=== PATIENT | female | born 1970 | race American Indian/Alaskan Native ===

== ENCOUNTER 2018-07-06 07:00 | Day surgery (SDC) | payer BC ==
[2018-07-06 07:13] VITALS: BMI 46.0
[2018-07-06 07:41] LABS: BASO # 0.1 K/uL (0.0-0.2); BASO % 0.7 % (0.0-2.0); EOS # 0.2 K/uL (0.0-0.7); EOS % 2.3 % (0.0-4.0); HEMOGLOBIN 13.8 g/dL (11.0-16.0); LYMPH # 2.8 K/uL (1.0-4.3); LYMPH % 33.5 % (20.0-40.0); MEAN CORPUSCULAR HGB CONC 34.4 g/dL (33.0-37.0); MEAN PLATELET VOLUME 8.5 fL (7.2-11.7); MONO # 0.7 K/uL (0.0-0.8); MONO % 8.8 % (0.0-10.0); NEUT # 4.5 K/uL (1.8-7.0); NEUT % 54.7 % (50.0-75.0); RBC 4.3 Mil/uL (3.80-5.20); RED CELL DISTRIBUTION WIDTH 13.9 % (11.5-14.5); WHITE BLOOD COUNT 8.3 K/uL (4.8-10.8)
[2018-07-06 07:53] LABS: BLOOD UREA NITROGEN 15 mg/dL (7-17); GFR NON-AFRICAN AMERICAN > 60
[2018-07-06] MEDS ORDERED: Midazolam 2 MG/2 ML VIAL ONE (08:58)
[2018-07-06] MEDS ORDERED: Propofol 10 mg/ml Inj (20 ML) ONE (08:58)
[2018-07-06] MEDS ORDERED: Clindamycin 600mg/50ml NS 600 MG/50 ML BAG IVPB ONE (08:59)
[2018-07-06] MEDS ORDERED: Sodium Chloride 0.9% 20 ML IV ONE (09:42)
[2018-07-06] MEDS ORDERED: Bupivacaine HCl 0.5% PF (30 ml) Inj ONE (11:04)
[2018-07-06] MEDS ORDERED: Oxycodone/Acetaminophen 5/325 mg Tab PO PRN ×2 (11:37)
--- NOTE | 2018-07-06 11:39 | PCM.SURG1 ---
Surgeon's Initial Post Op Note - Surgeon's Notes Surgeon: Dr. Avilez Color Finisher: Dr. Vicki Segal Type of Anesthesia: General Mask, Local Anesthesia Administered By: Nettie Valencia Pre-Operative Diagnosis: 1. left ankle synovitis/ impingement. 2. left ankle peroneal tenosynovitis. 3. bilateral hallucal ingrown toenails medial borders Operative Findings: see dictation. 4-0 monocryl. tenex- 3 minutes, 12 seconds. PRP- 3 CC. amniovo- 1CC Post-Operative Diagnosis: same Operation Performed: left ankle arthroscopy with debridement. left ankle tenex debridement peroneal tendons with PRP/ amniovo injection. bilateral hallucal medial border nail avulsions Specimen/Specimens Removed: soft tissue Estimated Blood Loss: EBL {In ML}: 20 Blood Products Given: N/A Drains Used: No Drains Post-Op Condition: Good Date of Surgery/Procedure: 07/06/18 Time of Surgery/Procedure: 11:39
[2018-07-06] MEDS ORDERED: HYDROmorphone 0.5 mg/0.5 ml ISec IVP PRN (11:47)
[2018-07-06] MEDS ORDERED: HYDROmorphone 0.5 mg/0.5 ml ISec ONE (11:58)
[2018-07-06] MEDS ORDERED: Lactated Ringer's 1,000 ML IV SCH (12:00)
[2018-07-06] MEDS ORDERED: Bupivacaine 0.25% 20 ML INJ IJ ONE (13:12)
[2018-07-06] MEDS ORDERED: Lidocaine Hydrochloride 5 ML INJ ONE (13:12)
--- NOTE | 2018-07-06 14:43 | PCM.ANESB2 ---
Popliteal Nerve Block - Popliteal Nerve Block Date of Procedure: 07/06/18 Anesthesiologist: Michaelle Pre-Procedure Diagnosis: Left ATF tear Post-Procedure Diagnosis: Left ATF tear Procedure Performed: Popliteal Nerve Block Left - Procedure Popliteal Nerve Block: After identification, the lateral portion of the thigh was prepped with Betadine solution three times and Lidocaine 1% was injected subcutaneously for topical anesthesia. At this point, a # 21 gauge Stimuplex insulated 4 inch needle was inserted into pre-marked area and advanced in a perpendicular direction. The needle was inserted above the ultrasound transducer in-plane towards the sciatic nerve in a [id number] direction. Needle advancement was performed carefully under direct ultrasound visualization. After repeated negative aspiration, _20_cc of __0.25_ % _bupivicaine__ was injected. Under ultrasound guidance the local anesthetics were observed surrounding sciatic nerve . The needle was removed intact and sterile dressing was applied. The patient tolerated the popliteal nerve block well with stable vital signs.
[2018-07-06] MEDS ORDERED: Lactated Ringer's 1,000 ML IV ONE (15:45)
[2018-07-06 16:05] VITALS: RESP 18
[2018-07-06 16:57] VITALS: BP 118/65; PULSE 82; TEMP 97.7; O2SAT 99
--- NOTE | 2018-07-07 06:24 | OP ---
PROCEDURE DATE: 07/06/2018 SURGEON: Ashely Avilez DPM. RAILCAR SWITCHMAN: Valerie Couch, PGY3; Steve Rodriguez, PGY2; Dr. Cohen, PGY1. PRIVATE TUTORS [employer] TEACHERS: Yo Braswell DO ANESTHESIA: General. PREOPERATIVE DIAGNOSES: 1. Left ankle synovitis/impingement. 2. Left ankle peroneal tendonitis/tenosynovitis. 3. Bilateral hallucal ingrown toenail, medial border. POSTOPERATIVE DIAGNOSES: 1. Left ankle synovitis/impingement. 2. Left ankle peroneal tendonitis/tenosynovitis. 3. Bilateral hallucal ingrown toenail, medial border. PROCEDURES PERFORMED: 1. Left ankle arthroscopy with debridement. 2. Left ankle percutaneous tenotomy of peroneal tendons under ultrasound guidance. 3. Left ankle platelet rich plasma and amniotic graft injection. 4. Left hallux medial border partial nail avulsion. 5. Right hallux medial border partial nail avulsion. INDICATIONS: The patient is a 48-year-old female with the above-mentioned diagnoses. The patient has exhausted multiple forms of conservative treatment at this time and now requires surgical intervention. The patient signed the consent after careful explanation of risks, benefits, complications, and alternatives for surgical procedure. No guarantees were given nor implied. DESCRIPTION OF PROCEDURE: The patient was brought into the operating room and placed on the operating room table in a supine position. A well-padded pneumatic thigh tourniquet was applied to the patient's left thigh. A time-out was performed for identification of the correct patient and procedure. Once general anesthesia was achieved, the patient's left and right legs were then prepped and draped in normal sterile manner. A thigh tourniquet was inflated to 350 mmHg and the procedure began. PROCEDURE #1: Left ankle arthroscopy with debridement: Attention was directed to the dorsal aspect of the patient's left ankle, where the ankle was infiltrated with approximately 10 mL of normal sterile saline. Next, utilizing a surgical marking pen, anatomical landmarks were marked as well as the tibialis anterior tendon and the medial and lateral gutters were identified. Next, utilizing a #15 blade, a medial portal was created. Utilizing hemostat at the level of the ankle joint, the ankle joint was then entered. Next, a 2.7 scope was inserted into the medial portal. There was an abundance of hypertrophic synovium as well as fibrous band within the ankle joint. Next, the lateral portal was created utilizing the #15 blade and a hemostat was then used down to the level of the ankle joint. Next, a trocar was placed into the lateral portal and triangulated along with the 2.7 scope. Next, a 4.0 Aggressive Shaver and a soft tissue ablater were inserted into the lateral ankle portal and debridement of the hypertrophic synovium and fibers then began. The ankle joint was then inspected for any osteochondral defect. No osteochondral defect was noted at this time. The 2.7 scope and a 3.5 aggressive shaver as well as the ablater were removed from each portal. The ankle joint was then flushed with copious amounts of normal sterile saline. The skin was reapproximated and coapted utilizing 4-0 nylon in simple suture technique. PROCEDURE #2: Left foot percutaneous debridement of peroneal tendons under ultrasound guidance: Attention was then directed to the left lateral ankle and foot. A sterile sleeve was placed over the ultrasound transducer and a diagnostic ultrasound was performed. Attention was then directed to the lateral foot and ankle. The anatomy was identified of the peroneal tendons and the diseased second area was seen inferior to the lateral malleolus extending to the base of the fifth metatarsal. Using a #15 blade, a stab incision was created over the lateral aspect of the ankle, inferior to the malleoli. The Tenex handpiece was introduced and much of the tip was located into the hypoechoic lesion, the foot pedal was depressed and the area was derided and tissue was excised. A total of 3 minutes and 12 seconds of ultrasonic energy was delivered. The skin was then re-approximated with 4-0 nylon. PROCEDURE #3: Injection of platelet-rich plasma and __amniovo___ graft into the lateral left ankle: A 3 mL of the patient's own blood was collected. The blood was placed in a centrifuge on the back table. The centrifuge was then turned on, and the blood was spun. Utilizing a needle and syringe, approximately 3 mL of the platelet-rich plasma was collected in a sterile manner. Using an 18 gauge needle, the 3 mL of PRP was injected to the left lateral ankle. Next, 2 mL of _amniovo____ graft was then injected into the lateral foot along the peroneal tendon sheath. The incision site was then dressed with Betadine-soaked gauze, Ada, and Brent. PROCEDURE #4: Left foot hallucal nail avulsion, medial border: Attention was directed to the left foot hallux medial border and with the use of an freer elevator, the border was undermined and then the nail was freed from the nail plate. Utilizing an Turkmen anvil and a hemostat, the medial border was cut and removed and passed from the surgical field. The hallux was then dressed with Betadine-soaked gauze, 4x4 gauze, Ada, and Brent. PROCEDURE #5: Right foot hallucal nail avulsion, medial border. Attention was then directed to the right foot hallux medial border, and with the use of a freer elevator, the border was undermined and the nail was freed from the nail plate. Utilizing an Turkmen anvil and hemostat, the medial border was cut and removed and passed from the surgical field. The hallux was then dressed with Betadine, 4x4 gauze, Ada, and Brent. Postoperative injection of 10 mL of 0.5% Marcaine plain was given in a local block-type fashion to the left leg. Postoperative dressing included Betadine-soaked Adaptic, 4x4 gauze, Ada, Kerlix, Webril, and Brent was applied to the left and the right legs. POSTOPERATIVE CONDITION: The patient tolerated the anesthesia and the procedure well and was escorted to the recovery room with vital signs stable and neurovascular status intact to both the left and the right feet. The patient will follow up with Dr. Avilez in her office on an outpatient basis. Valerie Couch DPM Ashely Avilez DPM MTDIftikhar
--- NOTE | 2018-07-07 15:59 | RAD ---
Date of service: 07/06/2018 PROCEDURE: Left Foot Radiographs. HISTORY: s/p left ankle arthroscopy COMPARISON: None. FINDINGS: BONES: No fracture or periosteal reaction appreciated. Inferior calcaneal spur . JOINTS: Normal. SOFT TISSUES: Soft tissue swelling and overlying bandage about the great toe. Here no periosteal reaction seen. Bandage impedes optimal evaluation for any gaseous cellulitis. OTHER FINDINGS: None. IMPRESSION: No periosteal reaction or cortical destruction seen to suggest osteomyelitis. Great toe soft tissue changes/swelling with obscuring overlying bandage Inferior calcaneal spur .
--- NOTE | 2018-07-08 21:10 | CARD ---
APPROVED REPORT Date of service: 07/06/2018 EKG Measurement Heart [id number] <Conclusion> Normal sinus rhythm Prolonged QT Abnormal ECG
== END 2018-07-06 17:10 | disposition home or self-care (01) ==
LOC: C.SDS 07:00
PROVIDERS: ATTEND Podiatrist Foot & Ankle Surgery
DX: M76.72 Peroneal tendinitis, left leg (principal); M65.9 Synovitis and tenosynovitis, unspecified; L60.0 Ingrowing nail
CPT/HCPCS: 11730; 11732; 28230; 29897; 36415; 73630; 80048; 85025; 93005; J0131; J1170; J2250; J2704; J3010; J7120

== ENCOUNTER 2018-12-03 12:10 | Outpatient (CLI) | payer BC, OTHER | END 2018-12-03 12:11 | disposition home or self-care (01) | LOC: C.PAT 12:10 | DX: M72.2 Plantar fascial fibromatosis (principal) ==

== ENCOUNTER 2018-12-11 06:07 | Day surgery (SDC) | payer BC, OTHER ==
[2018-12-03 12:48] VITALS: BMI 49.6
[2018-12-11] MEDS ORDERED: Lidocaine 2% MPF (5 ml) Inj ONE ×3 (07:25→08:31)
[2018-12-11] MEDS ORDERED: Bacitracin Ointment 30 GM TUBE ONE (07:25)
[2018-12-11] MEDS ORDERED: Vancomycin 1 gm/D5W 200 ml 0 GM/0 ML BAG IVPB ONE (07:25)
[2018-12-11] MEDS ORDERED: Midazolam 2 MG/2 ML VIAL ONE ×2 (07:54→08:34)
[2018-12-11] MEDS ORDERED: Propofol 10 mg/ml Inj (20 ML) ONE ×2 (07:54→08:34)
[2018-12-11] MEDS ORDERED: Clindamycin 600mg/50ml NS 600 MG/50 ML BAG IVPB ONE (08:07)
[2018-12-11] MEDS ORDERED: Oxycodone/Acetaminophen 5/325 mg Tab PO PRN ×2 (09:12)
[2018-12-11] MEDS ORDERED: Acetaminophen IV 1,000 MG in Premixed IV 1 EA IV PRN (09:13)
--- NOTE | 2018-12-11 09:17 | PCM.SURG1 ---
Surgeon's Initial Post Op Note - Surgeon's Notes Surgeon: Dr. Ashely Avilez DPM Cleaning Attendant: Dr. Billy Panda DPM PGY-2 Type of Anesthesia: IV Sedation, Local Anesthesia Administered By: Dr. Yao Pre-Operative Diagnosis: 1. L chronic ATFL sprain. 2. L ankle soft tissue mass and neuritis of intermediate dorsal cuteneous nerve. 3. L ankle effusion Operative Findings: See dictation Post-Operative Diagnosis: Same Operation Performed: 1. Left BMAC harvest and injection to ATFL. 2. Left intermediate dorsal cuteneous nerve decompression and excrision of soft tissue mass. 3. Cortisone injection to left ankle Specimen/Specimens Removed: Soft tissue mass Estimated Blood Loss: EBL {In ML}: 5 Blood Products Given: N/A Drains Used: No Drains Post-Op Condition: Good Date of Surgery/Procedure: 12/11/18 Time of Surgery/Procedure: 09:18
[2018-12-11 10:54] VITALS: O2SAT 97
[2018-12-11 11:44] VITALS: BP 129/75; PULSE 83; RESP 16; TEMP 97.7
--- NOTE | 2018-12-11 12:05 | RAD ---
Date of service: 12/11/2018 PROCEDURE: Intraoperative Fluoroscopy. HISTORY: LT. CHRONIC ATFL SPRAIN FINDINGS: Fluoroscopic assistance was provided for left BMAC harvest. Please refer to the operative report from JEREM[facility] Vel[facility]. Total fluoroscopic time (continuous mode) utilized during the procedure 3.1 seconds. Total exam DLP: 0.05 (mGy).
--- NOTE | 2018-12-14 06:56 | OP ---
PROCEDURE DATE: 12/11/2018 PREOPERATIVE DIAGNOSES: 1. Left chronic anterior talofibular ligament sprain. 2. Left ankle soft tissue mass and neuritis of intermediate dorsal cutaneous nerve. 3. Left ankle effusion. POSTOPERATIVE DIAGNOSES: 1. Left chronic anterior talofibular ligament sprain. 2. Left ankle soft tissue mass and neuritis of intermediate dorsal cutaneous nerve. 3. Left ankle effusion. PROCEDURES PERFORMED: 1. Left bone marrow aspirate concentrate harvest and injection to anterior talofibular ligament. 2. Left intermediate dorsal cutaneous nerve decompression and excision of soft tissue mass. 3. Cortisone injection to left ankle. SURGEON: Ashely Avilez DPM HIGHWAY ENGINEER: Billy Panda DPM, PGY-2. ANESTHESIOLOGIST: Dr. Yao. ANESTHESIA: IV sedation with local. INDICATION: The patient is a 48-year-old female with the above diagnoses. The patient has been treated by Dr. Ashely Avilez in her office as an outpatient basis where she has exhausted multiple forms of conservative treatments which include but are not limited to padding and strapping, home physical therapy, stretching exercises, oral anti-inflammatories, and injections. The patient seeks surgical intervention at this time. All risks, benefits, and possible complications of proposed procedure have been explained to the patient at greater length. The patient verbalized understanding of the procedure and wished to proceed with the procedure. All questions were answered. No guarantees were given nor implied; n.p.o. status was confirmed and consent was signed and placed in the patient's chart prior to taking the patient to the OR. OPERATING ROOM PROCEDURE: The patient was brought into the operating room and was placed on the operating room table in supine position. No tourniquet was applied during the course of this procedure. Once the patient received IV sedation, the patient received total of 20 mL of 1:1 mixture of 1% lidocaine plain to 0.5% Marcaine plain in a local block type fashion to the patient's left ankle as well as on the lateral aspect of the heel. Once the patient received local anesthesia, the patient's left leg and ankle was prepped and draped in usual sterile manner and the procedure began. PROCEDURE #1: Left BMAC harvest and injection to ATFL. Attention was directed to the patient's left lateral heel where an 18-gauge needle was inserted percutaneously towards the neutral triangle of the left heel bone. Intraoperative C-arm images were taken at this time to confirm the positioning of the 18-gauge needle on the lateral view. Once the position of the 18-gauge needle was confirmed on the lateral view of the C-arm, a small stab incision was created overlying the neutral triangle of the calcaneus. This incision was then deepened through subcutaneous tissue down to the layer of bone using sharp and blunt dissection. Care was taken to retract all vital neurovascular structures. All bleeders were cauterized and ligated as necessary. Through this 0.5 cm incision, a bone marrow aspirating Jamshidi needle was inserted. Next utilizing a mallet, the needle was inserted into the neutral triangle of the calcaneus into the cancellous portion of the bone. Once the needle was positioned properly, a 30 mL syringe was attached to the Jamshidi needle, 30 mL of syringe contained anticoagulant material which was prepped on the back table in a sterile manner. Next, the 30 mL syringe was filled with the patient's own bone marrow from the lateral calcaneus through the neutral triangle. Once total of 30 mL of bone marrow was collected from the bone, it was passed off the operative field and was sent to the back table to prepare for the concentration in a sterile manner. At this time, approximately 10 mL of half percent Marcaine plain was injected through the Jamshidi needle. Jamshidi needle was removed from the surgical site. A 4-0 Prolene was utilized at this time to reapproximate the skin in a simple suturing technique. A bone marrow concentrate was then spun on the back table for approximately 30 units, approximately 7 mL of patient's own bone marrow was collected in a separate syringe and was injected to the patient's left lateral ankle to the lateral ATFL ligaments. PROCEDURE #2: Left intermediate dorsal cutaneous nerve decompression and excision of soft tissue mass. Attention was then directed to the lateral aspect of the patient's left ankle where approximately 1 cm linear longitudinal incision was created. Incision was then carried down to the subcutaneous level using sharp and blunt dissection. Care was taken to retract all vital neurovascular structures, and all bleeders were cauterized and ligated as necessary. At this time, intermediate dorsal cutaneous nerve was identified and soft tissue overlying the intermediate dorsal cutaneous nerve was found in the surgical site. The soft tissue mass was then carefully dissected and was excised from the surgical field and was sent to pathology. Next utilizing a curved hemostat, the surrounding structures were then freed from the intermediate dorsal cutaneous nerve. Next utilizing copious amount of sterile saline, surgical site was then irrigated with saline. Next utilizing a 0 Vicryl, subcutaneous tissue was reapproximated. The surgical site was then reapproximated using 4-0 Prolene in horizontal suturing technique. PROCEDURE #3: Cortisone injection to left ankle. Approximately 1 mL for dexamethasone was prepared on the back table. Once the cortisone was ready to be injected into the patient's ankle and was passed from the back table to the surgeon's hand, it was then injected to the patient's medial left ankle. At this time, surgical site was then cleaned with wet to dry lap. Surgical site was then dressed with Betadine soaked Adaptic, sulfa, 4x4s, Kerlix, and an Brent bandage. POSTOPERATIVE CONDITION: The patient tolerated the anesthesia and the procedure well and was escorted to the recovery room with vital signs stable and neurovascular status intact to the patient's left lower extremity. The patient will remain full weightbearing to the left lower extremity using a surgical shoe. All of the postoperative instructions were provided to the patient prior to taking the patient to the operating room. The patient will follow up with Dr. Avilez in her office within one week. Billy Panda DPM Ashely Avilez DPM
== END 2018-12-11 11:45 | disposition home or self-care (01) ==
LOC: C.SDS 06:07
PROVIDERS: ATTEND Podiatrist Foot & Ankle Surgery
DX: S93.491A Sprain of other ligament of right ankle, initial encounter (principal)
CPT/HCPCS: 20900; 88305; 88307; J1100; J1644; J2250; J2704; J3010